=== PATIENT | female | born 1995 | race Caucasian/White ===

== ENCOUNTER 2017-04-09 05:42 | Day surgery (SDC) | payer BC ==
[2017-04-09] VITALS (12 sets, daily range): BP systolic 99–121; BP diastolic 51–73
[~2017-04-09] VITALS: Ht 165.1 cm; Wt 56.7 kg
[~2017-04-09 05:42] MED LIST: birth control
--- NOTE | 2017-04-09 05:46 | History and Physical Report ---
DATE OF ADMISSION: 04/09/2017 REASON FOR PROCEDURE: The patient is a 21-year-old with a history of endometriosis. The patient has increasing dysmenorrhea and pelvic pain that is interfering with her daily activities, and history of vaginal spotting. The patient is only 1-year-old, G0, who has had multiple surgeries for endometriosis. The patient has a uterine anomaly with uterine . She underwent a trial of continuous control pills, which helped somewhat. She states she has a typical type of pain that she normally has with endometriosis. PAST MEDICAL HISTORY: Endometriosis. PAST SURGICAL HISTORY: Three laparoscopies. ALLERGIES: None. SOCIAL HISTORY: The patient does not . She lives alone. REVIEW OF SYSTEMS: As above. Normal urinary function. No pain with urination. Normal bowel function. No constipation, diarrhea, nausea, or vomiting. PHYSICAL EXAMINATION: VITAL SIGNS: The patient is 64 inches and 123 pounds. Blood pressure 120/74, respiratory rate 18, and temperature 97.8 degrees. GENERAL: A young female, in no acute distress. HEAD AND NECK: Pupils are equal and reactive to light. LUNGS: Clear to auscultation bilaterally. CARDIAC: Regular rate and rhythm. ABDOMEN: Soft, nondistended, and nontender. PELVIC: Bimanual exam, tenderness to palpation of adnexa. No cervical motion tenderness. RECTOVAGINAL: No rectal nodularity. LABORATORY DATA: PT 11.4 and PTT 38.1. White count 7.8, hemoglobin 13.7, and platelets 263,000. EKG, negative. ASSESSMENT: The patient is a 21-year-old with history of endometriosis and uterine anomaly. PLAN: Plan is for diagnostic laparoscopy and CO2 laser ablation of endometriosis and to continue her on continuous control pills. Amparo Ovalles M.D. DR: DONIS JOB#: [id number] CC:
[2017-04-09] MEDS ORDERED: TRAMADOL HCL50 MG ORAL (06:24)
--- NOTE | 2017-04-09 06:36 | Anethesia Preoperative Eval ---
YEISON APPLE 04/09/17 0636: Anesthesia Pre-op PMH/ROS General Date of Evaluation: April 09, 2017 Time of Evaluation: 06:33 Anesthesiologist: lakia ASA Score: ASA 1 Mallampati Score Class I : Soft palate, uvula, fauces, pillars visible Class II: Soft palate, uvula, fauces visible Class III: Soft palate, base of uvula visible Class IV: Only hard plate visible Mallampati Classification: Class II Surgeon: nilda Diagnosis: pelvic pain/endometriosis Surgical Procedure: laparoscopy/d&c Family History: no anesthesia problems Allergies: Coded Allergies: No Known Allergies (Unverified , 04/08/17) Medications: see eMAR Past Medical History Gastrointestinal/Genitourinary: Reports: other - endometriosis, ovarian cystectomy Musculoskeletal/Integumentary: Reports: other - back pain Other: other - occasional etoh use PSxH Narrative: three laparoscopies, ovarian cystectomy Anesthesia Pre-op Phys. Exam Physician Exam Last Vital Signs Date Time Temp Pulse Resp B/P Pulse Ox O2 Delivery O2 Flow Rate FiO2 04/09/17 06:20 98.1 76 20 121/67 99 Room Air Constitutional: NAD Neurologic: CN 2-12 intact Cardiovascular: RRR, no M/R/G Respiratory: CTA Gastrointestinal: S/NT/ND Airway Exam Neck: supple Teeth: intact Anesthesia Pre-op A/P Labs Labs Test 04/09/17 06:00 Urine Test Test 04/09/17 06:00 Urine HCG, Qualitative Pending Risk Assessment & Plan Plan: diagnostic laparoscopy/CO2 laser ablation of endometriosis Status Change Before Surgery: No Pre-Antibiotics Given Within 1 Hr of Incision: Yes JOSEPHINE LAWRENCE DIRECTOR PRISON 04/09/17 0957: Anesthesia Pre-op PMH/ROS General Date of Evaluation: April 09, 2017 Time of Evaluation: 08:00 Anesthesiologist: leah ASA Score: ASA 2 Mallampati Score 2 Mallampati Classification: Class II Surgeon: nilda Diagnosis: pelvic pain Surgical Procedure: laparoscopy Anesthesia History: none Family History: no anesthesia problems Allergies: Coded Allergies: No Known Allergies (Unverified , 04/08/17) Medications: see eMAR Past Medical History Cardiovascular: Denies: CAD, HTN, VT, arrhythmia, other, valve dz Pulmonary: Denies: COPD, LIZZY, asthma, other Gastrointestinal/Genitourinary: Denies: CRI, ESRD, GERD, other Neurologic/Psychiatric: Denies: CVA, TIA, dementia, depression/anxiety, other Endocrine: Denies: DM, hypothyroidism, other, steroids Hematology/Immune: Reports: anemia Musculoskeletal/Integumentary: Denies: DDD, DJD, OA, RA, edema, other PSxH Narrative: laparoscopy Anesthesia Pre-op Phys. Exam Physician Exam 126/70 Constitutional: NAD Neurologic: CN 2-12 intact Cardiovascular: RRR Respiratory: CTA Gastrointestinal: S/NT/ND Airway Exam Mallampati Classification 2 Mallampati Score: Class II MO: full Neck: normal TMD: 2fb ROM: full Dentures: no lower, no upper Anesthesia Pre-op A/P Labs Urine Test neg Studies Pre-op Studies: EKG - sr Risk Assessment & Plan Plan: general Pre-Antibiotics Drug: ancef Given Within 1 Hr of Incision: Yes Time Given: 08:05 YEISON APPLE April 09, 2017 06:36 JOSEPHINE LAWRENCE CRNA April 09, 2017 09:57
[2017-04-09] MEDS ORDERED: cefOXitin Sod 2 GM in D5W 110 ML IVPB ONE (07:00)
[2017-04-09] MEDS ORDERED: Ropivacaine 5mg/ml Vial 20ml INJ ONE (07:06)
[2017-04-09] MEDS ORDERED: Midazolam 2mg/2ml Inj ONE (07:15)
[2017-04-09] MEDS ORDERED: Sterile Water Irrig 1000ml IRRIG ONE (07:15)
[2017-04-09] MEDS ORDERED: Propofol 10mg/ml 20ml IV ONE (07:15)
[2017-04-09] MEDS ORDERED: Lidocaine 1% MPF 10mg/ml 5ml ONE (07:15)
[2017-04-09] MEDS ORDERED: Nimbex 2mg/ml Inj 10ML IVP ONE (07:15)
[2017-04-09] MEDS ORDERED: Metoclopramide 10mg/2ml Inj ONE (07:15)
[2017-04-09] MEDS ORDERED: NS Irrig 1000ml ONE (07:15)
[2017-04-09] MEDS ORDERED: fentaNYL 100 mcg/2 mL IV ONE (07:15)
[2017-04-09] MEDS ORDERED: LR 1000ml ONE (07:15)
--- NOTE | 2017-04-09 07:38 | Pre-Procedure Note/Attestation ---
Pre-Procedure Note/Attestation Complete Prior to Procedure Planned Procedure: not applicable Procedure Narrative: diagnostic laparoscopy/ CO2 laser ablation of endometriosis Indications for Procedure Pre-Operative Diagnosis: pelvic pain/ dysmenorhea/ h/o endometriosis Attestation I attest that I discussed the nature of the procedure; its benefits; risks and complications; and alternatives (and the risks and benefits of such alternatives ), prior to the procedure, with the patient (or the patient's legal sales representative gas service). I attest that, if there was a reasonable possibility of needing a blood transfusion, the patient (or the patient's legal sales representative gas service) was given the [place] Department [employer] standardized written summary, pursuant to the [employer] Blood Safety Act ([place] Health and Safety Code # 1645, as amended). I attest that I re-evaluated the patient just prior to the surgery and that there has been no change in the patient's H&P, except as documented below: CARLOS HARRISON April 09, 2017 07:38
[2017-04-09] MEDS ORDERED: Norco 5mg/325mg tab ORAL PRN (07:45)
[2017-04-09] MEDS ORDERED: DiphenhydrAMINE 50mg/ml Inj IVP PRN (07:45)
[2017-04-09] MEDS ORDERED: Tylenol #3 tab (300mg/30mg) ORAL PRN (07:45)
[2017-04-09] MEDS ORDERED: D5 1/2NS 1,000 ML IV SCH (07:45)
[2017-04-09] MEDS ORDERED: ProvayBlue 5mg/ml 10ml amp INJ ONE (08:30)
[2017-04-09] MEDS ORDERED: Metoclopramide 10mg/2ml Inj IVP PRN (08:45)
[2017-04-09] MEDS ORDERED: Hydromorphone 0.5mg/0.5ml inj IVP PRN (08:45)
[2017-04-09] MEDS ORDERED: fentaNYL 100 mcg/2 mL IV PRN (08:45)
[2017-04-09] MEDS ORDERED: Meperidine 25mg/0.5ml Inj IV PRN (08:45)
[2017-04-09] MEDS ORDERED: Acetaminophen (Non formulary) 100 ML IV ONE (09:00)
--- NOTE | 2017-04-09 09:32 | Brief Operative Note ---
Immediate Post Operative Note Operative Note Pre-op Diagnosis: pelvic pain/ dysmenorhea/ h/o endometriosis Procedure: co2 laser pelviscopy/ hysteroscopy/ lysis of adhesions/ ablation of endometriosis Surgeon: nilda Travelift Operator: bianka Anesthesia: general Specimen: yes Complications: none Condition: stable Estimated Blood Loss: minimal Drains: none Implant(s) used?: No CARLOS HARRISON April 09, 2017 09:32
--- NOTE | 2017-04-09 09:56 | Immediate Post-Op Evaluation ---
Immediate Post-Op Evalulation Immediate Post-Op Evalulation Procedure: laparoscopy Date of Evaluation: April 09, 2017 Time of Evaluation: 09:56 IV Fluids: 800 Blood Pressure Systolic: 120 Blood Pressure Diastolic: 58 Pulse Rate: 74 Respiratory Rate: 14 O2 Sat by Pulse Oximetry: 100 Temperature (Fahrenheit): 97.8 Nausea: No Vomiting: No Complications none Patient Status: awake, reacts, patent Hydration Status: adequate Drug: ancef Given Within 1 Hr of Incision: Yes Time Given: 08:05 JOSEPHINE LAWRENCE CRNA April 09, 2017 09:56
--- NOTE | 2017-04-09 10:07 | 48 Hour Post Anesthesia Eval ---
Post Anesthesia Evaluation Procedure: laparoscopy Date of Evaluation: April 09, 2017 Time of Evaluation: 10:07 Blood Pressure Systolic: 120 0: 60 Pulse Rate: 74 Respiratory Rate: 14 O2 Sat by Pulse Oximetry: 100 Airway: patent Nausea: No Vomiting: No Hydration Status: adequate Cardiopulmonary Status: stable Mental Status/LOC: patient returned to baseline Post-Anesthesia Complications: none Follow-up care needed: N/A JOSEPHINE LAWRENCE CRNA April 09, 2017 10:07
[2017-04-09] MEDS: HYDROmorphone 1mg/ml Carpuject IVP PRN ×2 (11:53→12:29)
--- NOTE | 2017-04-12 23:45 | Operative Note - Dictated ---
DATE OF OPERATION: 04/09/2017 PREOPERATIVE DIAGNOSES: Dysmenorrhea, pelvic pain, and uterine anomaly. POSTOPERATIVE DIAGNOSES: Pain and adhesions and small amount of endometriosis. FINDINGS: External cervix with two internal cervical os. Externally, uterus appears within normal limits. Normal uterine cavity, two tubes, bilateral normal ovaries, adhesions between right ovary and uterus, endometriosis, posterior cul-de-sac, and one lesion, small. SURGEON: Amparo Ovalles M.D. ORE GRADER: Dakotah Linn M.D. ESTIMATED BLOOD LOSS: Minimal. COMPLICATIONS: None. PROCEDURE IN DETAIL: After ensuring informed consent, the patient was taken to the operating room, where general anesthesia was induced. The patient was sterilely prepped and draped. Weighted speculum was placed in the vagina. External cervix was dilated to an 8 Hegar dilator. Next, hysteroscope was placed inside the uterine cavity. There were two internal os that left with two separate cavities with a thick septum. Next, attention was turned to the abdomen where a small infraumbilical incision was made. Veress needle was placed inside the intraperitoneal cavity. Intraperitoneal placement was confirmed with low opening pressures. Next, pelvic cavity was distended with CO2 gas. Pelvis was explored. Uterus appeared normal externally. There were two ovaries and two tubes, which appeared within normal limits. There was an adhesion between the right ovary and posterior uterus. Next, CO2 laser was attached to the laparoscope and also a 5 mm trocar was introduced under direct visualization left laterally. Next using laser, the adhesion was removed and sent to pathology. Also, there was a small focus of endometriosis of the posterior cul-de-sac that was likewise lasered off. Next, pelvis was copiously irrigated. Next, hemostasis was reassured. Both trocars were removed under direct visualization. Skin was closed with 4-0 Monocryl and Steri-Strips. Corona was removed. Estimated blood loss was minimal. Lap and instruments counts were correct x2. The patient was taken to the recovery area and extubated in a stable condition. Amparo Ovalles M.D. DR: DONIS JOB#: [id number] CC:
== END 2017-04-09 13:35 | disposition home or self-care (01) ==
LOC: SUR 05:42
DX: N80.3 Endometriosis of pelvic peritoneum (principal); N73.6 Female pelvic peritoneal adhesions (postinfective); Q51.818 Other congenital malformations of uterus; N94.6 Dysmenorrhea, unspecified; D64.9 Anemia, unspecified
CPT/HCPCS: 58555; 58662; 81025; J0690; J1170; J2250; J2405; J2704; J2765; J2795; J3010; J7120; 94003; 94150; J2180